=== PATIENT | female | born 1980 | race Caucasian/White ===

== ENCOUNTER 2019-09-09 18:37 | Emergency (ER) | payer OTHER ==
[~2019-09-09] VITALS: Ht 165.1 cm; Wt 56.7 kg
--- NOTE | 2019-09-09 18:53 | NUR ---
PT IS A/OX4, PRESENTS TO THE ER C/O HEADACHE AND NAUSEA S/P TV FALLING ON HER FACE EARLIER TODAY. PT REPORTS SHE WAS CLEANING HER DRESSER WHEN SHE LOOKED UP AND THE TV ON TOP OF THE DRESSER FELL ON HER FACE. PT DENIES LOC FOLLOWING THE EVENT BUT REPORTS EPISODE OF NAUSEA 2 HOURS FOLLOWING THE EVENT. NO VISIBLE MARKING, NO CREPITUS PALPATED ON THE FOREHEAD. PT IS C/O NAUSEA AT THIS TIME. BILATERAL PERRLA. VSS. HEADACHE IS NON-PROVOKED, PRESSURE IN QUALITY, DOES NOT RADIATE, 8/10, CONSTANT. PT DENIES C/P, SOB, DIZZINESS.
[2019-09-09] MEDS ORDERED: ONDANSETRON ODT 4 MG TAB.RAPDIS ONE (19:17)
[2019-09-09] MEDS ORDERED: HYDROCODONE/APAP 10-325 MG TABLET ONE (19:17)
[2019-09-09] MEDS: ONDANSETRON ODT 4 MG TAB.RAPDIS SL ONE (19:19)
[2019-09-09] MEDS: HYDROCODONE/APAP 10-325 MG TABLET PO ONE (19:19)
--- NOTE | 2019-09-09 19:57 | NUR ---
Patient discharged to home in stable conditon. Written and verbal after care instructions given. Patient verbalizes understanding of instructions. ALL BELONGINGS W/ PT. PT SELF-AMBULATED W/O DIFFICULTY. PT STATES SHE WILL TAKE UBER BACK HOME.
[2019-09-09 19:58] VITALS: BP 106/77
== END 2019-09-09 19:58 | disposition home or self-care (01) ==
LOC: ER 18:39
DX: S06.0X0A Concussion without loss of consciousness, initial encounter (principal); R11.0 Nausea; W20.8XXA Other cause of strike by thrown, projected or falling object, initial encounter; Y93.89 Activity, other specified; Y92.89 Other specified places as the place of occurrence of the external cause; Y99.8 Other external cause status
CPT/HCPCS: 70450; A4663; Q0162